=== PATIENT | female | born 1995 | race African-American/Black ===

== ENCOUNTER 2017-08-22 22:29 | Emergency (ER) | payer OTHER ==
[2017-08-22 22:56] LABS: #Eosinphils 0.1 thou/uL (0.0-0.7); #Lymphocytes 2.1 thou/uL (1.20-3.40); #Monocytes 0.3 thou/uL (0.11-0.59); #Neutrophils 2.5 thou/uL (1.40-6.50); %Basophils 0.4 % (0.0-1.0); %Eosinophils 1.1 % (0.0-10.0); %Lymphocytes 42.1 % (28.0-48.0); %Monocytes 6.7 % (0.0-4.0); %Neutrophils 49.7 % (31.0-61.0); Mean Corpuscular HGB CONC 31.8 g/dL (32.0-36.0); Mean Corpuscular Hemoglobin 24.3 pg (25.0-35.0); Mean Corpuscular Volume 76.7 fl (77.0-87.0); Mean Platelet Volume 7.7 fL (7.4-10.4); Platelet Count 282 thou/uL (130-400); RBC Distribution Width 14.4 % (11.5-14.5); Red Blood Cell (RBC) Count 4.51 mill/uL (4.00-5.20); White Blood Cell (WBC) Count 5.1 thou/uL (4.8-10.8)
[2017-08-22 23:20] LABS: ALT (SGPT) 9 U/L (8-55); AST (SGOT) 15 U/L (5-30); Albumin 3.9 g/dL (3.5-5.0); Alkaline Phosphatase 61 U/L (40-150); Anion Gap 10 mmol/L (10-20); BUN (Urea Nitrogen) 9 mg/dL (8.4-21.0); Bilirubin, Total 0.5 mg/dL (0.2-1.2); Calc. Creatinine Clearance 0 mL/min (70-130); Carbon Dioxide 24 mmol/L (22-29); Chloride 103 mmol/L (98-107); Estimated GFR-MDRD Greater than 90; Glucose 107 mg/dL (70-105); Protein, Total 6.9 g/dL (6.0-8.3); Sodium 134 mmol/L (136-145)
--- NOTE | 2017-08-22 23:55 | ULT ---
PELVIS ULTRASOUND: HISTORY: Right lower quadrant pain x3 days. TECHNIQUE: Real-time imaging of the pelvis was obtained transabdominally as well as with an endovaginal probe. FINDINGS: This shows a uterus measuring 9.9 cm in length. There is an intrauterine gestational sac, yolk sac, and a somewhat difficult to visualize pole. The [id number] length measurements are 4 mm, co rresponding to a gestational age of 6 weeks 1 day. Gestational sac measurements are 1.7 cm, correspo nding to 6 weeks 4 days. There is a subchorionic bleed present with a crescentic shaped area of blee d around approximately half of the gestational sac. It measures approximately 7 mm in thickness. There is a 3 cm right ovarian cyst present. The left ovary is unremarkable. DOPPLER EVALUATION WITH SPECTRAL ANALYSIS: Normal flow is shown to both adnexae. Trace free fluid is seen adjacent to the right ovary. IMPRESSION: 1. A 3 cm right ovarian cyst with some fluid near the right ovary. 2. A single viable intrauterine with measurements that would correspond to a gestational a ge of 6 weeks 3 days. Estimated date of delivery 04/14/2018. There is evidence of a subchorionic bl eed. POS: [facility]
[2017-08-23 00:03] LABS: Bilirubin Negative (Negative); Blood, Urine Negative (Negative); Clarity CLEAR (Clear); Glucose, Urine (Dipstick) Negative (Negative); Leukocyte Negative (Negative); Nitrite Negative (Negative); Protein, Urine (Dipstick) Negative (Neg-Trace); Specific Gravity, Urine 1.004 (1.002-1.036); Urobilinogen 0.2 mg/dL (0.2-1.0)
== END 2017-08-23 00:15 | disposition home or self-care (01) ==
LOC: ERS 22:29
DX: O20.0 Threatened abortion (principal); O34.81 Maternal care for other abnormalities of pelvic organs, first trimester; N83.201 Unspecified ovarian cyst, right side; Z3A.01 Less than 8 weeks gestation of pregnancy
CPT/HCPCS: 36415; 76856; 80053; 81003; 85025; 86900; 86901; 87086

== ENCOUNTER 2017-12-15 22:36 | Day surgery (SDC) | payer OTHER ==
[2017-12-15 23:09] VITALS: BP 124/60; TEMP 99.1; BMI 19.8
--- NOTE | 2017-12-15 23:36 | PDOC.EVN ---
Event Note - Event Note Event Note: Faculty Note: Full H&P is handwritten and placed in chart by RN. Patient is at 22 weeks 6 days with nonspecific left anterior abdominal discomfort. Afebrile. I have ordered a cath UA to r/o UTI. Likely round ligament spasm. Please see full H&P handwritten note
[2017-12-15 23:51] LABS: Bilirubin Negative (Negative); Blood, Urine Negative (Negative); Clarity CLEAR (Clear); Glucose, Urine (Dipstick) Negative (Negative); Leukocyte Negative (Negative); Nitrite Negative (Negative); Protein, Urine (Dipstick) Negative (Neg-Trace); Specific Gravity, Urine 1.009 (1.002-1.036); Urobilinogen 0.2 mg/dL (0.2-1.0); pH, Urine 6.5 (5.0-9.0)
--- NOTE | 2017-12-16 00:09 | PDOC.EVN ---
Event Note - Event Note Event Note: UA clean...DX= round ligament pain. OK for outpatient care.
== END 2017-12-16 00:30 | disposition home or self-care (01) ==
LOC: L&D/OP 22:36
PROVIDERS: ATTEND Obstetrics & Gynecology
DX: O99.89 Other specified diseases and conditions complicating pregnancy, childbirth and the puerperium (principal); R10.9 Unspecified abdominal pain; Z3A.22 22 weeks gestation of pregnancy
CPT/HCPCS: 81003; 99282; A4353

== ENCOUNTER 2018-02-22 21:31 | Day surgery (SDC) | payer OTHER ==
[2018-02-22 21:22] LABS: #Basophils 0.1 thou/uL (0.0-0.2); #Eosinphils 0.2 thou/uL (0.0-0.7); #Lymphocytes 1.7 thou/uL (1.20-3.40); #Monocytes 0.5 thou/uL (0.11-0.59); #Neutrophils 3.9 thou/uL (1.40-6.50); %Basophils 0.9 % (0.0-1.0); %Eosinophils 2.5 % (0.0-10.0); %Lymphocytes 26.9 % (28.0-48.0); %Monocytes 7.4 % (0.0-4.0); %Neutrophils 62.2 % (31.0-61.0); Hemoglobin 10.3 g/dL (12.0-16.0); Mean Corpuscular HGB CONC 31.2 g/dL (32.0-36.0); Mean Corpuscular Hemoglobin 23.5 pg (25.0-35.0); Mean Corpuscular Volume 75.4 fL (78.0-98.0); Platelet Count 316 thou/uL (130-400); RBC Distribution Width 13.6 % (11.5-14.5); Red Blood Cell (RBC) Count 4.39 mill/uL (4.00-5.20); White Blood Cell (WBC) Count 6.2 thou/uL (4.8-10.8)
[2018-02-22 21:45] LABS: ALT (SGPT) Less than 7 U/L (8-55); AST (SGOT) 16 U/L (5-34); Albumin 3.5 g/dL (3.5-5.0); Alkaline Phosphatase 73 U/L (40-150); Anion Gap 11 mmol/L (10-20); BUN (Urea Nitrogen) 6 mg/dL (7.0-18.7); Bilirubin, Total 0.6 mg/dL (0.2-1.2); Calc. Creatinine Clearance 0 mL/min (70-130); Calcium 8.7 mg/dL (7.8-10.44); Carbon Dioxide 23 mmol/L (22-29); Chloride 105 mmol/L (98-107); Estimated GFR-MDRD Greater than 90; Globulin 3.5 g/dL (2.4-3.5); Glucose 76 mg/dL (70-105); Potassium 3.5 mmol/L (3.5-5.1); Sodium 135 mmol/L (136-145)
[2018-02-22 22:05] VITALS: BMI 22.1
--- NOTE | 2018-02-23 07:37 | PRG ---
DATE OF SERVICE: 02/22/2018 OB ER ENCOUNTER PRIMARY TECHNICAL SALES REPRESENTATIVE: Link Dash M.D. CHIEF COMPLAINT: Abdominal pains and increased discharge. HISTORY OF PRESENT ILLNESS: The patient is a 22-year-old G2, P1 female with an intrauterine pregnanc y at 33 weeks and a day, who presents to Labor and Delivery after experiencing 3 contractions through out the day. She reports each of them lasted about 2 minutes. The patient denies any leakage of flu id or vaginal bleeding or urinary urgency. She denies any fever, fall, headache, chest pain, shortne ss of breath, nausea or vomiting. The patient does report constipation. Denies diarrhea. Denies an y new rashes. Denies hip problems, knee problems, muscle weakness. She does report increased discha rge over the last couple of days. PAST MEDICAL HISTORY: Negative. PAST SURGICAL HISTORY: Negative. SOCIAL HISTORY: Denies drug, alcohol or tobacco use. ALLERGIES: No known drug allergies. MEDICATIONS: vitamins and iron. OB HISTORY: She has had a history of 1 term delivery. OB LABS: One-hour Glucola is 90. Sickle cell is negative, HIV first trimester is nonreactive, RPR f irst trimester is nonreactive, hepatitis B surface antigen first trimester is nonreactive. She is ru howard immune. Blood type is O positive. Antibody screen is negative. REVIEW OF SYSTEMS: Per HPI. PHYSICAL EXAMINATION: VITAL SIGNS: Blood pressure 106/60, heart rate of 83, respiratory rate of 18, temperature 98.6. GENERAL: She appears to be in no acute distress. She is alert and oriented, cooperative and pleasan t to interact with. HEENT: Head is normocephalic, atraumatic. LUNGS: Clear to auscultation bilaterally. HEART: Regular rate and rhythm. ABDOMEN: Gravid, soft, nontender to palpation. EXTREMITIES: Nontender, nonedematous. PELVIC: Cervix is closed and thick. heart tracing for abdominal pain shows a baseline in the 130s with moderate long-term variabili ty, positive 15 x 15 accelerations, no decelerations. She has some irritability on the monitor with infrequent contractions, not felt by the patient. DESIGN TECHNOLOGY PROFESSOR-3 was collected and is still pending at the enrique e of dictation. ASSESSMENT AND PLAN: The patient is a 22-year-old female with an intrauterine at 33 weeks who has experienced some Stefano Rodriguez today. Reassurance has been given to the patient as she has n o evidence of labor. There is the DESIGN TECHNOLOGY PROFESSOR-3 pending to evaluate for bacterial vaginosis or Trichomonas or yeast that may be contributing to the increased discharge. The patient has a closed cervix and a re assuring heart tracing. She has been given labor precautions and discharged home with instructions to call back in the morning as the DESIGN TECHNOLOGY PROFESSOR-3 would not be run until the next morning. The dimitris sevilla does have an appointment with her primary OB the following day.
== END 2018-02-22 23:40 | disposition home or self-care (01) ==
LOC: L&D/OP 21:31 → EDSTATUS 21:33 → L&D/OP 23:40
PROVIDERS: ATTEND Obstetrics & Gynecology
DX: O47.03 False labor before 37 completed weeks of gestation, third trimester (principal); O99.89 Other specified diseases and conditions complicating pregnancy, childbirth and the puerperium; R10.9 Unspecified abdominal pain; N89.8 Other specified noninflammatory disorders of vagina; Z3A.33 33 weeks gestation of pregnancy; Z79.899 Other long term (current) drug therapy
CPT/HCPCS: 36415; 80053; 85025; 87480; 87510; 87660; 99283

== ENCOUNTER 2018-03-10 22:46 | Day surgery (SDC) | payer OTHER ==
[2018-03-10 23:19] VITALS: BP 114/61; TEMP 98.4; BMI 22.5
--- NOTE | 2018-03-10 23:58 | PDOC.EVN ---
Event Note - Event Note Event Note: Patient's H&P dictated. Patient declined offered stadol. OK for DC after 30 minutes obs. NST reactive
--- NOTE | 2018-03-11 00:18 | HP ---
DATE OF ADMISSION: 03/10/2018 TIME OF EVALUATION: 2339 until 235. LOCATION: Labor and Delivery Triage. The patient is in LDR 5. This is a patient of Dr. Dash. REASON FOR EVALUATION: Probable contractions at 35 weeks. HISTORY OF PRESENT ILLNESS: This is a 22-year-old G2, P1 at 35 weeks and 2 days wit h a history of at 36 weeks with her last delivery here for possible contractions. She is not sure if she lost her "mucous plug." No leakage of fluid and no vaginal bleeding. She has goo d movements reported. PAST MEDICAL HISTORY: Negative. ALLERGIES: None. PAST SURGICAL HISTORY: None. SOCIAL HISTORY: Negative for alcohol, tobacco and drug use. OB HISTORY: Significant for vaginal delivery x1. PHYSICAL EXAMINATION: GENERAL: She is afebrile and normotensive. Clinically, she is in no acute distress. ABDOMEN: Uterus soft and nontender and size consistent with dates. Uterus is gravid with an estimat ed weight of approximately 5 pounds. On cervical examination by me, cervix is 1 cm dilated, 25% effaced, -2 station, cephalic presentation . Bag of water intact. Cervix is posterior. There is no evidence of vaginal bleeding or leakage of fluid. On monitor, heart tones are in the 130s-140s, moderate reactivity and accelerations. Tocodynamometer shows uterine irritability, but no distinct contraction pattern. ASSESSMENT: A 35 weeks and 2 days, 2, para 1 with irregular contractions with threatened pre term labor, no evidence of active labor. Cervical exam is only 1 cm dilated and there is no distinct contraction pattern. PLAN: 1. Pain meds p.r.n. 2. Blood pressure is okay. 3. Reactive heart tones. 4. We will observe for about 30 minutes to keep her on the strip. 5. No active contraction pattern. 6. Threatened labor, discussed with patient. 7. The patient is stable for possible outpatient management.
== END 2018-03-11 00:55 | disposition home or self-care (01) ==
LOC: L&D/OP 22:46
PROVIDERS: ATTEND Obstetrics & Gynecology
DX: O47.03 False labor before 37 completed weeks of gestation, third trimester (principal); Z3A.35 35 weeks gestation of pregnancy; Z87.51 Personal history of pre-term labor; Z79.899 Other long term (current) drug therapy
CPT/HCPCS: 99282

== ENCOUNTER 2018-04-01 13:42 | Day surgery (SDC) | payer OTHER ==
[2018-04-01 14:24] VITALS: BMI 22.3
--- NOTE | 2018-04-03 08:07 | SS ---
DATE OF ADMISSION: 04/01/2018 DATE OF DISCHARGE: 04/01/2018 LABOR AND DELIVERY TRIAGE NOTE REGULAR PHYSICIAN: Iliana Dash MD EVALUATING PHYSICIAN: Efe Silva MD HISTORY OF PRESENT ILLNESS: Ms. Mahmood is a 22-year-old black, G2, P0-1-0-1 with an estimated date of confinement of 04/12/2018, who presents to triage this afternoon complaining of irregular contractions at home. She states that she had 3 contractions 5 minutes apart and came to the hospital for evaluation. She denies ruptured membranes or vaginal bleeding. Her care has been with Dr. Dash and was reportedly complicated by some 1st trimester bleeding and a possible subchorionic hemorrhage. Her exam last week showed the cervix to be 3 cm per her report. PAST OBSTETRICAL HISTORY: Includes one vaginal delivery at 36 weeks. PAST MEDICAL HISTORY: None. PAST SURGICAL HISTORY: None. CURRENT MEDICATIONS: 1. vitamins. 2. Iron. ALLERGIES: NONE. SOCIAL HISTORY: Denies tobacco or alcohol use. She denies illicit drug use. FAMILY HISTORY: Unremarkable. REVIEW OF SYSTEMS: Denies nausea, vomiting, fever, chills, ruptured membranes, or vaginal bleeding. PHYSICAL EXAMINATION: VITAL SIGNS: Stable and she is afebrile in Triage. ABDOMEN: Soft, nontender, and gravid. PELVIC: Examination by the Labor nurse shows the cervix to be 3 cm dilated, thick, and posterior. The vertex is ballotable. heart rate tracing is stable. There are no decelerations. Good vvyq-tt-qsod variability is seen. Irritability is seen with occasional contractions. ASSESSMENT AND PLAN: 1. A 38-week intrauterine . 2. No evidence of active labor at this time. The patient will be discharged home with labor precautions. These were reviewed with her in detail. She has an appointment with Dr. Dash on Tuesday, and he was notified of this visit. Job ID: [id number]
== END 2018-04-01 15:09 | disposition home health service (06) ==
LOC: L&D/OP 13:42
PROVIDERS: ATTEND Obstetrics & Gynecology
DX: O47.1 False labor at or after 37 completed weeks of gestation (principal); Z3A.38 38 weeks gestation of pregnancy

== ENCOUNTER 2018-04-01 21:11 | Inpatient (IN) | payer OTHER ==
[~2018-04-01 21:11] MED LIST: Bupivacaine HCl 0.5%/Epinephrine 1:200,000/PF 30 ml Vial ONE
[2018-04-01 21:43] VITALS: BMI 22.3
--- NOTE | 2018-04-01 22:13 | PDOC.FPROB ---
FMR OB H&P: HPI - History of Present Illness Chief Complaint: contractions Indentification: 22 y/o @ 38.3 WGA History of Present Illness: Patient reports contractions that started around 10 this morning, but then slowed down. She was evaluated here on L&D at that time and was found to be 3.5/ 40/-4. She states that around 7pm the contractions picked back up and were every 3-4 minutes. She denies any LOF, vaginal bleeding, vaginal d/c. She endorses good movement. She denies H/A, vision changes, RUQ pain, swelling. Primary Care Physician: Dr. Dash FMR OB H&P: Current - Care : 2 Para: 0101 Gestational age: 38w3d - OB Labs Blood type: O RH: positive Antibody Screen: negative HIV: negative RPR: negative HepBsAg: negative Rubella: immune 1 hour gtt: 90 GBS: unknown Additional labs: Sickle cell negative FMR OB H&P: History - Past Medical History PMH: None - OB History OB History: labor and delivery with vacuum assisted vaginal delivery at 36 weeks. 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: Denies h/o STI's or abnormal pap smears - Surgical History Sx History: None - Social History Social History: Denies tobacco, EtOH, or drug use - Family History Family History: None FMR OB H&P: Medications - Current Home Medications: Medication Instructions Recorded Confirmed Type Vit,Calc76/Iron/Folic 1 tablet PO DAILY 10/06/15 04/01/18 History [Prenatabs Rx Tablet] Ferrous Sulfate [Iron] 325 mg PO DAILY 04/01/18 04/01/18 History Allergies/Adverse Reactions: Allergies Allergy/AdvReac Type Severity Reaction Status Date / Time No Known Allergies Allergy Verified 04/01/18 14:15 FMR OB H&P: ROS - Review of Systems General: denies: fever/chills, weight/appetite/sleep changes Eyes: denies: eye pain, vision changes ENT: denies: nasal congestion, rhinorrhea, sore throat Cardiovascular: denies: chest pain, edema Respiratory: denies: cough, shortness of breath Gastrointestinal: denies: abdominal pain, nausea, vomiting Genitourinary (Female): denies: incontinence, dysuria, vaginal discharge, vaginal bleeding Musculoskeletal: denies: pain, stiffness Neurologic: denies: syncope, seizures Integumentary: denies: itching, rash Hematologic/Lymphatic: denies: prolonged or excessive bleeding, enlarged lymph nodes Psychological: denies: depression, anxiety FMR OB H&P: Vital Signs - Heart Tones Baseline: 140 Variability: moderate Acceleration: present Deceleration: absent Category: category 1 Br[place] contractions every: 3-4 minutes FMR OB H&P: Physical Exam - Physical Exam General: NAD, awake, alert and oriented HEENT: normocephalic and atraumatic, MMM, conjunctiva clear Heart: RRR, normal S1/S2, pulses present Deviation from normal: 2/6 systolic murmur, loudest at L sternal border General: CTAB, no respiratory distress, good air movement, no wheezing Abdomen: soft, non-tender, bowel sound present Musculoskeletal: normal gait and station, pulses present Neurological: cranial nerves II through XII intact, no focal deficit Skin: no rash, capillary refill <2 seconds Psychiatric: intact recent and remote memory, good judgement and insight - Pelvic Exam SVE: /-2/posterior FMR OB H&P: A/P - Problem List (1) Term Current Visit: Yes Status: Acute Code(s): Z34.80 - ENCOUNTER FOR SUPRVSN OF NORMAL , UNSP TRIMESTER Assessment and Plan: Cervix has made some change from prior check earlier today. -Will monitor for 2 hours and then recheck cervix. If patient has made further cervical change will discuss case with Dr. Dash and likely admit patient. -Will orally hydrate Discussion: Date/Time: 04/01/182210 This H&P was discussed with Dr. Silva who agrees with the above documentation and plan. Signature: Adilene Suarez MD, PGY-2 Attending Addendum - Attending Addendum Date/Time: 04/02/18 0034 I personally evaluated the patient and discussed the management with Dr. Suarez. I agree with the History, Examination, Assessment and Plan documented above.
[2018-04-01] MEDS ORDERED: NS / Oxytocin 40 units/1000ml 1,000 ML IV PRN (23:41)
[2018-04-01] MEDS ORDERED: Lidocaine 1% (PF) 30 ML VIAL SC PRN (23:41)
[2018-04-01] MEDS ORDERED: Ibuprofen 800 MG TAB PO PRN (23:41)
[2018-04-01] MEDS ORDERED: Ondansetron PF 4 MG/2 ML Vial IVP PRN (23:41)
[2018-04-01] MEDS ORDERED: Promethazine HCl 25 MG/ML VIAL IM PRN (23:41)
[2018-04-01] MEDS ORDERED: Fentanyl 4 mcg/Bup 0.1% Cadd 100 ML ONE (23:48)
--- NOTE | 2018-04-01 23:48 | PDOC.EVN ---
Addendum entered and electronically signed by Adilene Suarez MD 04/02/18 00:01: Per Dr. Dash the patient is GBS negative. She does not require any antibiotics at this time. Original Note: Event Note - Event Note Event Note: Rechecked patient after two hours. SVE @ 2340 was /-2 Cat 1 FHT [place]: q4-5 minutes, having couplets -Will admit to L&D -Epidural -continue to monitor -LR @ 125, will draw labs -GBS status unknown, will attempt to obtain record and will start penicillin ppx <Adilene Suarez - Last Filed: 04/01/18 23:44> Attending Addendum - Attending Addendum Date/Time: 04/02/18 0035 I personally evaluated the patient and discussed the management with Dr. Suarez. I agree with the History, Examination, Assessment and Plan documented above with any addition or exceptions noted below. Communicated with Dr. Dash, made him aware of her admit. He states her GBS status is negative. <Efe Silva - Last Filed: 04/02/18 00:36>
[2018-04-01] MEDS ORDERED: Penicillin G Potassium 5 MILL.UNITS in Sodium Chloride 0.9% 100 ML IVPB SCH (23:59)
[2018-04-02] MEDS: Lactated Ringer's 1,000 ML IV SCH ×2 (00:05→09:01)
[2018-04-02 00:19] LABS: Hemoglobin 10.8 g/dL (12.0-16.0); Mean Corpuscular HGB CONC 30.3 g/dL (32.0-36.0); Mean Corpuscular Hemoglobin 21.5 pg (25.0-35.0); Mean Corpuscular Volume 70.7 fL (78.0-98.0); Mean Platelet Volume 8.3 fL (7.4-10.4); Platelet Count 302 thou/uL (130-400); RBC Distribution Width 16.2 % (11.5-14.5); Red Blood Cell (RBC) Count 5.02 mill/uL (4.00-5.20); White Blood Cell (WBC) Count 7.3 thou/uL (4.8-10.8)
[2018-04-02] MEDS ORDERED: Ondansetron PF 4 MG/2 ML Vial IVP PRN ×2 (00:27→06:27)
[2018-04-02] MEDS ORDERED: Promethazine HCl 25 MG/ML VIAL IM PRN (00:27)
[2018-04-02] MEDS ORDERED: Acetaminophen 325 MG TAB PO PRN (00:27)
[2018-04-02] MEDS ORDERED: diphenhydrAMINE 50 MG/ML VIAL IVP PRN (00:27)
[2018-04-02] MEDS ORDERED: ePHEDrine/0.9% NaCl/PF SYRINGE 50 mg/10 ml SLOW IVP PRN (00:27)
[2018-04-02] MEDS ORDERED: Lactated Ringer's 500 ML IV PRN (00:27)
[2018-04-02] MEDS ORDERED: Naloxone HCl 0.4 mg/ml Vial IVP PRN ×2 (00:27)
[2018-04-02] MEDS ORDERED: Eucerin (Mineral Oil/Petrolatum,White) 30 gm Jar TOP PRN (00:27)
[2018-04-02] MEDS ORDERED: Fentanyl 4 mcg/Bupivacaine 0.1% Cassette 100 ML EPIDURAL SCH (00:30)
[2018-04-02] MEDS ORDERED: Communication Order-Pharmacy FS SCH (00:30)
[2018-04-02 01:11] LABS: HBSAg Index 0.19 S/CO (0-0.99); Hep B Surf Ag Non-Reactive S/CO (NonReactive); Syphilis Antibody Nonreactive (Nonreactive); Syphilis Antibody Index 0.04 S/CO (<1.00 Non-Reactive)
[2018-04-02] MEDS ORDERED: Penicillin G 2.5 MILL.units 2.5 MILL.UNITS in Premix Bag 1 BAG IVPB SCH (04:00)
[2018-04-02] MEDS ORDERED: Preparation H Ointment 28 GM TUBE PR PRN (06:27)
[2018-04-02] MEDS ORDERED: Acetaminophen/Codeine 30-300mg Tablet PO PRN ×2 (06:27)
[2018-04-02] MEDS ORDERED: Adacel (T-DAP) 0.5 ML SYRINGE IM ONE (06:27)
[2018-04-02] MEDS ORDERED: Lanolin Ointment 7 GM TUBE TOP PRN (06:27)
[2018-04-02] MEDS ORDERED: Zolpidem Tartrate 5 MG TAB PO PRN (06:27)
[2018-04-02] MEDS ORDERED: Bisacodyl 10 MG SUPP PR PRN (06:27)
[2018-04-02] MEDS ORDERED: Misoprostol 200 MCG TAB VAG PRN (06:27)
[2018-04-02] MEDS ORDERED: Benzocaine/Menthol 20-0.5% 60 ML CAN TOP PRN (06:27)
[2018-04-02] MEDS ORDERED: diphenhydrAMINE 25 MG CAP PO PRN (06:27)
[2018-04-02] MEDS ORDERED: Milk Of Magnesia 30 ML UDCUP PO PRN (06:27)
[2018-04-02] MEDS ORDERED: NS / Oxytocin 40 units/1000ml 1,000 ML IV SCH (06:30)
[2018-04-02] MEDS: Ferrous Sulfate 325 MG TAB PO SCH ×2 (09:01→14:08)
[2018-04-02] MEDS: Ibuprofen 800 MG TAB PO SCH ×2 (09:36→11:41)
[2018-04-02] MEDS: Docusate Calcium (SURFAK) 240 MG CAP PO SCH ×2 (09:36→20:14)
[2018-04-02] MEDS: Prenatal Vitamin 1 TAB PO SCH (09:36)
[2018-04-02] MEDS ORDERED: Ibuprofen 800 MG TAB PO SCH (17:00)
[2018-04-02] MEDS: Ibuprofen 800 MG TAB PO PRN (23:25)
[2018-04-03 06:45] LABS: Mean Corpuscular HGB CONC 31.1 g/dL (32.0-36.0); Mean Corpuscular Hemoglobin 22.5 pg (25.0-35.0); Mean Corpuscular Volume 72.2 fL (78.0-98.0); Mean Platelet Volume 8.6 fL (7.4-10.4); Platelet Count 242 thou/uL (130-400); RBC Distribution Width 16.2 % (11.5-14.5); Red Blood Cell (RBC) Count 4.01 mill/uL (4.00-5.20); White Blood Cell (WBC) Count 7.5 thou/uL (4.8-10.8)
[2018-04-03 07:48] VITALS: BP 120/68; TEMP 97.6
[2018-04-03] MEDS: Prenatal Vitamin 1 TAB PO SCH (11:14)
[2018-04-03] MEDS: Ferrous Sulfate 325 MG TAB PO SCH (11:14)
[2018-04-03] MEDS: Docusate Calcium (SURFAK) 240 MG CAP PO SCH (11:14)
[2018-04-03] MEDS: Ibuprofen 800 MG TAB PO PRN (14:49)
== END 2018-04-03 18:05 | disposition home or self-care (01) | DRG 807 ==
LOC: L&D/OP 21:11 → L&D 23:47 → 3SE 04-02 08:52
PROVIDERS: ADMIT Obstetrics & Gynecology; ATTEND Obstetrics & Gynecology
PROC: 10E0XZZ Delivery of Products of Conception, External Approach (ICD-10-PCS; principal; 2018-04-02)
PROC: 0HQ9XZZ Repair Perineum Skin, External Approach (ICD-10-PCS; 2018-04-02)
DX: O70.0 First degree perineal laceration during delivery (principal); Z37.0 Single live birth; Z3A.38 38 weeks gestation of pregnancy
CPT/HCPCS: 36415; 85027; 86780; 86850; 86900; 86901; 87340; 99282; J0670; J2405

== ENCOUNTER 2018-11-15 21:13 | Emergency (ER) | payer MEDICAID, OTHER ==
[2018-11-15] MEDS ORDERED: Ondansetron ODT 8 MG TAB ONE (21:51)
[2018-11-15 22:06] LABS: Bilirubin Negative (Negative); Blood, Urine Negative (Negative); Clarity Clear (Clear); Glucose, Urine (Dipstick) >=1000 mg/dL (Negative); Leukocyte 250 Leu/uL (Negative); Mucous/LPF 1+ LPF (<2+); Nitrite Negative (Negative); Protein, Urine (Dipstick) 20 mg/dL (Neg-Trace)
[2018-11-15] MEDS ORDERED: Acetaminophen 500 MG TAB ONE (22:10)
[2018-11-15 22:13] LABS: Bacteria/HPF 2+ HPF (None Seen)
== END 2018-11-15 22:30 | disposition home or self-care (01) ==
LOC: ERS 21:13
DX: O23.42 Unspecified infection of urinary tract in pregnancy, second trimester (principal); O20.9 Hemorrhage in early pregnancy, unspecified; Z3A.18 18 weeks gestation of pregnancy
CPT/HCPCS: 81003; 81015

== ENCOUNTER 2019-01-15 21:59 | Emergency (ER) | payer MEDICAID ==
[2019-01-15 22:18] LABS: Bacteria/HPF None Seen HPF (None Seen); Bilirubin Negative (Negative); Blood, Urine Negative (Negative); Clarity Clear (Clear); Glucose, Urine (Dipstick) 50 mg/dL (Negative); Leukocyte 250 Leu/uL (Negative); Nitrite Negative (Negative); Protein, Urine (Dipstick) Negative (Neg-Trace); RBC/HPF 0-3 HPF (0-3); Urobilinogen Normal mg/dL (Less than 2); WBC/HPF 0-3 HPF (0-3)
[2019-01-15 22:41] LABS: #Eosinphils 0.1 thou/uL (0.0-0.7); #Lymphocytes 2.1 thou/uL (1.20-3.40); #Monocytes 0.4 thou/uL (0.11-0.59); #Neutrophils 2.5 thou/uL (1.40-6.50); %Basophils 0.4 % (0.0-1.0); %Eosinophils 1.6 % (0.0-10.0); %Monocytes 7.9 % (0.0-10.0); %Neutrophils 49.1 % (42.0-75.0); Mean Corpuscular HGB CONC 33.3 g/dL (32.0-36.0); Mean Corpuscular Hemoglobin 25.4 pg (27.0-31.0); Mean Corpuscular Volume 76.4 fL (78.0-98.0); Mean Platelet Volume 7.8 fL (7.4-10.4); Platelet Count 277 thou/uL (130-400); RBC Distribution Width 12.9 % (11.5-14.5); Red Blood Cell (RBC) Count 4.32 mill/uL (4.20-5.40); White Blood Cell (WBC) Count 5.2 thou/uL (4.8-10.8)
[2019-01-15 22:54] LABS: ALT (SGPT) 7 U/L (8-55); AST (SGOT) 12 U/L (5-34); Albumin 3.4 g/dL (3.5-5.0); Alkaline Phosphatase 56 U/L (40-110); Anion Gap 11 mmol/L (10-20); BUN (Urea Nitrogen) 8 mg/dL (7.0-18.7); Bilirubin, Total 0.2 mg/dL (0.2-1.2); Calc. Creatinine Clearance 0 mL/min (70-130); Carbon Dioxide 22 mmol/L (22-29); Chloride 104 mmol/L (98-107); Estimated GFR-MDRD Greater than 90; Globulin 3.2 g/dL (2.4-3.5); Glucose 90 mg/dL (70-105); Potassium 3.5 mmol/L (3.5-5.1); Protein, Total 6.6 g/dL (6.0-8.3); Sodium 133 mmol/L (136-145)
== END 2019-01-15 23:05 | disposition home or self-care (01) ==
LOC: ERS 21:59
DX: O99.89 Other specified diseases and conditions complicating pregnancy, childbirth and the puerperium (principal); R10.9 Unspecified abdominal pain; Z3A.13 13 weeks gestation of pregnancy; Z79.899 Other long term (current) drug therapy
CPT/HCPCS: 36415; 80053; 81003; 81015; 84702; 85025; 87077; 87086; 99284

== ENCOUNTER 2019-04-19 22:25 | Day surgery (SDC) | payer OTHER ==
[2019-04-19 23:09] VITALS: BMI 22.6
[2019-04-19] MEDS ORDERED: hydrALAZINE 20 MG/ML VIAL SLOW IVP PRN (23:18)
--- NOTE | 2019-04-19 23:45 | HP ---
This is a patient of Dr. Juli Thompson/Dr. Dash. TIME OF EVALUATION: Roughly 2310 hours to 2325 hours, time now is 2326 hours. LOCATION: Triage in antepartum bed 2. REASON FOR EVALUATION/CHIEF COMPLAINT: Pelvic pressure at 30 weeks with recent intercourse within 24 hours. HISTORY OF PRESENT ILLNESS: This is a 23-year-old , G3, P2, with an EDC of June 26, putting her at 30 weeks and 1 day. She states lower pelvic cramping, but no real contractions. She denies leakage of fluid or vaginal bleeding. She states that she has had recent intercourse and has cramps on and off. She denies recent trauma. REVIEW OF SYSTEMS: Complete review of systems was checked and is otherwise negative unless specified in the HPI. PAST MEDICAL HISTORY: Negative. SURGICAL HISTORY: Negative. ALLERGIES: NONE. OB HISTORY: She had a vaginal delivery with her first child at 36 weeks. Her second delivery was at 37 weeks and 6 days. MEDICATIONS: None (no progesterone use). PHYSICAL EXAMINATION: VITAL SIGNS: Her blood pressure is 108/59, pulse is 82, and she is afebrile. GENERAL: She is in no acute distress and resting comfortably. ABDOMEN: Soft and nontender. CERVICAL: Deferred as we are awaiting a cervical length by ultrasound. Interventions ordered. I have ordered a transvaginal ultrasound for cervical length. strip, I reviewed the heart monitor and heart tones are in the 130s to 140s with normal baseline and moderate variability. They are accelerations and no pathological decelerations. The heart rate tracing is reassuring. ASSESSMENT: This is a 23-year-old multigravida at 30 weeks and 1 day with likely discomforts of /round ligament pain, and cramping, most likely from recent intercourse. I do not suspect labor at this time. However, to be conservative, I have ordered a transvaginal ultrasound for cervical length. I cannot obtain a fibronectin as she has had recent intercourse within 24 hours. PLAN: 1. Reassurance given. 2. OB history reviewed with her. 3. Etiology of the cramps as round ligament pain versus postcoital uterine contractions reviewed. Job ID: [id number]
--- NOTE | 2019-04-19 23:46 | PDOC.EVN ---
Event Note - Event Note Event Note: Present for TVL US: average legnth as 2.8cm. No funneling noted or beaking...ok for DC home. DX: Round ligament pain
--- NOTE | 2019-04-19 23:57 | ULT ---
EXAM: US Pelvic Transvag PROVIDED CLINICAL HISTORY: Pelvic pain COMPARISON: None FINDINGS: Limited sonographic interrogation was performed of the uterine cervix. It measures approximately 2.8 cm in length and appears closed. IMPRESSION: As above.
== END 2019-04-20 00:05 | disposition home or self-care (01) ==
LOC: L&D/OP 22:25
PROVIDERS: ATTEND Obstetrics & Gynecology
DX: O99.89 Other specified diseases and conditions complicating pregnancy, childbirth and the puerperium (principal); R10.2 Pelvic and perineal pain; Z3A.30 30 weeks gestation of pregnancy
CPT/HCPCS: 76856; 99282

== ENCOUNTER 2019-06-01 23:42 | Day surgery (SDC) | payer OTHER ==
[2019-06-02 00:08] VITALS: BP 114/64; TEMP 98.7; BMI 22.0
[2019-06-02] MEDS ORDERED: hydrALAZINE 20 MG/ML VIAL SLOW IVP PRN ×2 (00:15→00:34)
[2019-06-02] MEDS ORDERED: Ibuprofen 800 MG TAB PO PRN (00:34)
[2019-06-02] MEDS ORDERED: Ondansetron PF 4 MG/2 ML Vial IVP PRN (00:34)
[2019-06-02] MEDS ORDERED: NS / Oxytocin 40 units/1000ml 1,000 ML IV PRN (00:34)
[2019-06-02] MEDS ORDERED: Promethazine HCl 25 MG/ML VIAL IM PRN (00:34)
[2019-06-02] MEDS ORDERED: Lidocaine 1% (PF) 30 ML VIAL SC PRN (00:34)
--- NOTE | 2019-06-02 00:40 | PDOC.FPROB ---
FMR OB H&P: HPI - History of Present Illness Chief Complaint: abdominal cramping Indentification: 23 y/o @ 36.3 WGA History of Present Illness: Patient presents for abdominal cramping that has been ongoing for about a week, but today it has been getting worse with associated vaginal pressure. She reports the cramping is mostly in her lower abdomen and she is not sure if it is contractions. She reports increase in vaginal d/c lately that she thinks is her mucous plug. She denies vaginal bleeding or LOF. Endorses movement. Primary Care Physician: Dr. 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: Denies any h/o STI's or abnormal paps - Surgical History Sx History: Denies - Social History Social History: Denies EtOH, tobacco, or drug use - Family History Family History: Denies FMR OB H&P: Medications - Current Home Medications: Medication Instructions Recorded Confirmed Type No Known 06/02/19 06/02/19 History Allergies/Adverse Reactions: Allergies Allergy/AdvReac Type Severity Reaction Status Date / Time No Known Allergies Allergy Verified 06/02/19 00:04 FMR OB H&P: ROS - Review of Systems General: denies: fever/chills, weight/appetite/sleep changes Eyes: denies: vision changes, double vision ENT: denies: nasal congestion, sore throat Cardiovascular: denies: chest pain, edema Respiratory: denies: cough, shortness of breath Gastrointestinal: reports: abdominal pain. denies: nausea, vomiting Genitourinary (Female): reports: vaginal discharge, vaginal pressure. denies: dysuria, vaginal bleeding Musculoskeletal: denies: pain, swelling Neurologic: denies: numbness, weakness Integumentary: denies: itching, rash Hematologic/Lymphatic: denies: prolonged or excessive bleeding, enlarged lymph nodes FMR OB H&P: Vital Signs - Maternal Vital signs: Vital Signs - First Documented Temp Pulse Resp BP 98.7 F 78 18 114/64 06/02/19 00:02 06/02/19 00:02 06/02/19 00:02 06/02/19 00:02 - Heart Tones Baseline: 130 Variability: moderate Acceleration: present Deceleration: absent Category: category 1 [place] contractions every: 5-6 min FMR OB H&P: Physical Exam - Physical Exam General: NAD, awake, alert and oriented HEENT: normocephalic and atraumatic, MMM, conjunctiva clear, grossly normal vision, grossly normal hearing Neck: supple, no LAD Heart: pulses present, no edema General: no respiratory distress Abdomen: soft (with palpable contractions), gravid, non-tender Musculoskeletal: pulses present, FROM in all four extremities Neurological: no tremor, no focal deficit Skin: good tugor, capillary refill <2 seconds Psychiatric: intact recent and remote memory, good judgement and insight - Pelvic Exam SVE: /-2 FMR OB H&P: A/P - Problem List (1) labor in third trimester Current Visit: Yes Status: Acute Code(s): O60.03 - LABOR WITHOUT DELIVERY, THIRD TRIMESTER Qualifiers: Fetus number: single or unspecified fetus Assessment and Plan: Patient presents in labor with cervical dilation of 4 and ctx q5-6 min -Will admit to L&D -Expectantly manage -Penicillin for GBS ppx as pt GBS unknown and -Monitor FHT -LR @ 125 Disposition: Admit to L&D for expectant management Discussion: Date/Time: 06/02/1936 This H&P was discussed with Dr. Silva who agrees with the above documentation and plan. Signature: Adilene Suarez MD, PGY-3 Addendum - Attending - Attending Attestation Date/Time: 06/02/19 7122 I personally evaluated the patient and discussed the management with Dr. Suarez. Dr. Dash notified of admit. I agree with the History, Examination, Assessment and Plan documented above.
[2019-06-02] MEDS ORDERED: Lactated Ringer's 1,000 ML IV SCH (00:45)
[2019-06-02] MEDS ORDERED: Penicillin G Potassium 5 MILL.UNITS in Sodium Chloride 0.9% 100 ML IVPB SCH (00:45)
[2019-06-02 01:57] LABS: Hemoglobin 9.9 g/dL (12.0-16.0); Mean Corpuscular HGB CONC 32.4 g/dL (32.0-36.0); Mean Corpuscular Hemoglobin 23.5 pg (27.0-31.0); Mean Corpuscular Volume 72.4 fL (78.0-98.0); Mean Platelet Volume 8.6 fL (7.4-10.4); Platelet Count 291 thou/uL (130-400); RBC Distribution Width 14.8 % (11.5-14.5); Red Blood Cell (RBC) Count 4.23 mill/uL (4.20-5.40); White Blood Cell (WBC) Count 5.5 thou/uL (4.8-10.8)
[2019-06-02 02:33] LABS: HBSAg Index 0.25 S/CO (0-0.99); Hep B Surf Ag Non-Reactive S/CO (NonReactive)
[2019-06-02 04:45] LABS: Syphilis Antibody Nonreactive (Nonreactive); Syphilis Antibody Index 0.04 S/CO (<1.00 Non-Reactive)
[2019-06-02] MEDS ORDERED: Penicillin G 2.5 MILL.units 2.5 MILL.UNITS in Premix Bag 1 BAG IVPB SCH (05:00)
[2019-06-02] MEDS ORDERED: FLU VACC QS2019-20(6MOS UP)/PF 60 MCG/0.5 ML SYRINGE IM ONE (09:00)
== END 2019-06-02 14:11 | disposition home or self-care (01) ==
LOC: L&D/OP 23:42 → L&D 06-02 00:34 → UNDOADMIN 06-02 00:34 → UNDODISIN 06-02 13:30 → L&D/OP 06-02 14:11
PROVIDERS: ATTEND Obstetrics & Gynecology
DX: O47.03 False labor before 37 completed weeks of gestation, third trimester (principal); O99.820 Streptococcus B carrier state complicating pregnancy; Z3A.36 36 weeks gestation of pregnancy
CPT/HCPCS: 36415; 85027; 86780; 86850; 86900; 86901; 87340; 96360; 96361; 99285

== ENCOUNTER 2019-06-05 11:00 | Inpatient (IN) | payer OTHER ==
[2019-06-05 11:33] VITALS: BMI 22.6
[2019-06-05] MEDS ORDERED: Penicillin G Potassium 5 MILL.UNITS VIAL ONE (11:41)
[2019-06-05] MEDS ORDERED: Lidocaine 1% (PF) 30 ML VIAL SC PRN (11:55)
[2019-06-05] MEDS ORDERED: Acetaminophen/Codeine 30-300mg Tablet PO PRN ×4 (11:55→16:06)
[2019-06-05] MEDS ORDERED: Diphenoxylate HCl/Atropine Tablet PO PRN ×2 (11:55)
[2019-06-05] MEDS ORDERED: Ondansetron PF 4 MG/2 ML Vial IVP PRN ×3 (11:55→16:06)
[2019-06-05] MEDS ORDERED: Misoprostol 200 MCG TAB PR PRN (11:55)
[2019-06-05] MEDS ORDERED: Methylergonovine 0.2 MG/ML VIAL IM PRN (11:55)
[2019-06-05] MEDS ORDERED: Promethazine HCl 25 MG/ML VIAL IM PRN ×2 (11:55→13:46)
[2019-06-05] MEDS ORDERED: Ibuprofen 800 MG TAB PO PRN (11:55)
[2019-06-05] MEDS ORDERED: NS / Oxytocin 40 units/1000ml 1,000 ML IV PRN (11:55)
[2019-06-05] MEDS ORDERED: Docusate 100 MG CAP PO PRN (11:55)
[2019-06-05] MEDS ORDERED: Carboprost 250 MCG/ML AMP IM PRN (11:55)
[2019-06-05] MEDS ORDERED: hydrALAZINE 20 MG/ML VIAL SLOW IVP PRN ×2 (11:55→16:06)
[2019-06-05] MEDS ORDERED: Lactated Ringer's 1,000 ML IV SCH (12:00)
[2019-06-05] MEDS ORDERED: Penicillin G Potassium 5 MILL.UNITS in Sodium Chloride 0.9% 100 ML IVPB SCH (12:00)
[2019-06-05] MEDS ORDERED: Bupivacaine 0.25% HCL 30 ML VIAL ONE (12:23)
[2019-06-05] MEDS ORDERED: Fentanyl 4 mcg/Bup 0.1% Cadd 100 ML ONE (12:25)
[2019-06-05 12:33] LABS: Hemoglobin 9.7 g/dL (12.0-16.0); Mean Corpuscular HGB CONC 29.8 g/dL (32.0-36.0); Mean Corpuscular Hemoglobin 21.2 pg (27.0-31.0); Mean Corpuscular Volume 71.2 fL (78.0-98.0); Mean Platelet Volume 9.9 fL (7.4-10.4); Platelet Count 274 thou/uL (130-400); RBC Distribution Width 15.1 % (11.5-14.5); Red Blood Cell (RBC) Count 4.54 mill/uL (4.20-5.40); White Blood Cell (WBC) Count 6.5 thou/uL (4.8-10.8)
[2019-06-05 13:27] LABS: Syphilis Antibody Nonreactive (Nonreactive); Syphilis Antibody Index 0.04 S/CO (<1.00 Non-Reactive)
[2019-06-05 13:28] LABS: HBSAg Index 0.27 S/CO (0-0.99); Hep B Surf Ag Non-Reactive S/CO (NonReactive)
[2019-06-05] MEDS ORDERED: Acetaminophen 325 MG TAB PO PRN (13:46)
[2019-06-05] MEDS ORDERED: Lactated Ringer's 500 ML IV PRN (13:46)
[2019-06-05] MEDS ORDERED: EPHEDRINE 25 MG/5 ML SYRINGE SLOW IVP PRN (13:46)
[2019-06-05] MEDS ORDERED: Naloxone HCl 0.4 mg/ml Vial IVP PRN ×2 (13:46)
[2019-06-05] MEDS ORDERED: diphenhydrAMINE 50 MG/ML VIAL IVP PRN (13:46)
[2019-06-05] MEDS ORDERED: Fentanyl 4 mcg/Bupivacaine 0.1% Cassette 100 ML EPIDURAL SCH (14:00)
[2019-06-05] MEDS ORDERED: Communication Order-Pharmacy FS SCH (14:00)
[2019-06-05] MEDS ORDERED: Penicillin G 2.5 MILL.units 2.5 MILL.UNITS in Premix Bag 1 BAG IVPB SCH (16:00)
[2019-06-05] MEDS ORDERED: Zolpidem Tartrate 5 MG TAB PO PRN (16:06)
[2019-06-05] MEDS ORDERED: Benzocaine-Menthol 82.5 ML CAN TOP PRN (16:06)
[2019-06-05] MEDS ORDERED: Lanolin Ointment 7 GM TUBE TOP PRN (16:06)
[2019-06-05] MEDS ORDERED: Bisacodyl 10 MG SUPP PR PRN (16:06)
[2019-06-05] MEDS ORDERED: diphenhydrAMINE 25 MG CAP PO PRN (16:06)
[2019-06-05] MEDS ORDERED: Milk Of Magnesia 30 ML UDCUP PO PRN (16:06)
[2019-06-05] MEDS ORDERED: Preparation H Ointment 28 GM TUBE PR PRN (16:06)
[2019-06-05] MEDS ORDERED: Misoprostol 200 MCG TAB VAG PRN (16:06)
[2019-06-05] MEDS ORDERED: NS / Oxytocin 40 units/1000ml 1,000 ML IV SCH (16:15)
[2019-06-05] MEDS: Ferrous Sulfate 325 MG TAB PO SCH (21:08)
[2019-06-05] MEDS: Docusate Calcium (SURFAK) 240 MG CAP PO SCH (21:08)
[2019-06-05] MEDS: Ibuprofen 800 MG TAB PO SCH (21:08)
[2019-06-06] MEDS: Ibuprofen 800 MG TAB PO SCH ×3 (06:21→18:39)
[2019-06-06] MEDS ORDERED: Adacel (T-DAP) 0.5 ML SYRINGE IM ONE (09:00)
[2019-06-06] MEDS: Docusate Calcium (SURFAK) 240 MG CAP PO SCH ×2 (18:24→21:42)
[2019-06-06] MEDS: Prenatal Vitamin 1 TAB PO SCH (18:24)
[2019-06-06] MEDS: Ferrous Sulfate 325 MG TAB PO SCH ×2 (18:24→18:39)
[2019-06-07] MEDS: Ibuprofen 800 MG TAB PO SCH (06:05)
[2019-06-07 08:29] VITALS: BP 116/59; TEMP 98
[2019-06-07] MEDS: Prenatal Vitamin 1 TAB PO SCH (08:32)
[2019-06-07] MEDS: Ferrous Sulfate 325 MG TAB PO SCH (08:32)
[2019-06-07] MEDS: Docusate Calcium (SURFAK) 240 MG CAP PO SCH (08:33)
== END 2019-06-07 13:50 | disposition home or self-care (01) | DRG 807 ==
LOC: L&D 11:00 → 3SE 18:50
PROVIDERS: ADMIT Obstetrics & Gynecology; ATTEND Obstetrics & Gynecology
PROC: 10E0XZZ Delivery of Products of Conception, External Approach (ICD-10-PCS; principal; 2019-06-05)
DX: O60.14X0 Preterm labor third trimester with preterm delivery third trimester, not applicable or unspecified (principal); Z37.0 Single live birth; O99.824 Streptococcus B carrier state complicating childbirth; Z3A.36 36 weeks gestation of pregnancy
CPT/HCPCS: 36415; 85027; 86780; 86850; 86900; 86901; 87340; J2540; S0020

== ENCOUNTER 2020-12-20 21:37 | Emergency (ER) | payer OTHER ==
[2020-12-20 21:52] LABS: Bilirubin Negative (Negative); Blood, Urine Negative (Negative); Clarity Clear (Clear); Glucose, Urine (Dipstick) Normal (Negative); Ketone, Urine Negative (Negative); Leukocyte Negative Leu/uL (Negative); Nitrite Negative (Negative); Protein, Urine (Dipstick) Negative (Neg-Trace); Specific Gravity, Urine 1.029 (1.002-1.036); Urobilinogen Normal mg/dL (Less than 2); pH, Urine 5.5 (5.0-9.0)
[2020-12-20 21:54] LABS: Pregnancy Test - Urine (BHCG) Negative (Negative); Pregu Control Background? CLEAR/WHITE (CLR/WHITE); Pregu Control Bar Appear? YES (CONTROL BAR); Specific Gravity 1.029 (1.002-1.036)
[2020-12-20 22:16] LABS: #Eosinphils 0.1 thou/uL (0.0-0.7); #Lymphocytes 2.4 thou/uL (1.20-3.40); #Monocytes 0.4 thou/uL (0.11-0.59); #Neutrophils 2.4 thou/uL (1.40-6.50); %Basophils 0.4 % (0.0-1.0); %Eosinophils 2.4 % (0.0-10.0); %Lymphocytes 44.1 % (21.0-51.0); %Monocytes 7.3 % (0.0-10.0); %Neutrophils 45.7 % (42.0-75.0); Hemoglobin 10.4 g/dL (12.0-16.0); Mean Corpuscular HGB CONC 30.8 g/dL (32.0-36.0); Mean Corpuscular Hemoglobin 22.2 pg (27.0-31.0); Mean Corpuscular Volume 72.1 fL (78.0-98.0); Mean Platelet Volume 9.1 fL (7.4-10.4); Platelet Count 300 thou/uL (130-400); RBC Distribution Width 15.1 % (11.5-14.5); Red Blood Cell (RBC) Count 4.67 mill/uL (4.20-5.40); White Blood Cell (WBC) Count 5.3 thou/uL (4.8-10.8)
[2020-12-20 22:29] LABS: ALT (SGPT) 8 U/L (8-55); AST (SGOT) 14 U/L (5-34); Albumin 4.1 g/dL (3.5-5.0); Alkaline Phosphatase 68 U/L (40-110); Anion Gap 13 mmol/L (10-20); BUN (Urea Nitrogen) 12 mg/dL (7.0-18.7); Bilirubin, Total 0.6 mg/dL (0.2-1.2); Calc. Creatinine Clearance 0 mL/min (70-130); Calcium 9.3 mg/dL (7.8-10.44); Carbon Dioxide 23 mmol/L (22-29); Chloride 105 mmol/L (98-107); Globulin 3.4 g/dL (2.4-3.5); Glucose 86 mg/dL (70-105); Lipase 24 U/L (8-78); Potassium 3.6 mmol/L (3.5-5.1); Protein, Total 7.5 g/dL (6.0-8.3); Sodium 137 mmol/L (136-145)
== END 2020-12-20 23:00 | disposition home or self-care (01) ==
LOC: ERS 21:37
DX: R10.12 Left upper quadrant pain (principal); R10.13 Epigastric pain
CPT/HCPCS: 36415; 80053; 81003; 81025; 83690; 85025; 99284

== ENCOUNTER 2022-02-22 15:41 | Emergency (ER) | payer OTHER ==
[~2022-02-22 15:41] MED LIST changes: -Bupivacaine HCl 0.5%/Epinephrine 1:200,000/PF 30 ml Vial ONE; +Iopamidol-370 76% 500 ML 1 ML ONE
[2022-02-22 16:20] LABS: #Lymphocytes 1.4 thou/uL (1.20-3.40); #Monocytes 0.8 thou/uL (0.11-0.59); #Neutrophils 4.3 thou/uL (1.40-6.50); %Basophils 0.1 % (0.0-1.0); %Eosinophils 0.4 % (0.0-10.0); %Lymphocytes 21.5 % (21.0-51.0); %Monocytes 11.7 % (0.0-10.0); %Neutrophils 66.4 % (42.0-75.0); Hemoglobin 11.7 g/dL (12.0-16.0); Mean Corpuscular HGB CONC 30.1 g/dL (32.0-36.0); Mean Corpuscular Hemoglobin 24.9 pg (27.0-31.0); Mean Corpuscular Volume 82.9 fl (78.0-98.0); Mean Platelet Volume 8.5 fL (7.4-10.4); Platelet Count 227 thou/uL (130-400); RBC Distribution Width 13.1 % (11.5-14.5); Red Blood Cell (RBC) Count 4.71 mill/uL (4.20-5.40); White Blood Cell (WBC) Count 6.5 thou/uL (4.8-10.8)
[2022-02-22 16:27] LABS: BHCG - Serum Negative (NEGATIVE); Pregs Control Background? CLEAR/WHITE (CLR/WHITE); Pregs Control Bar Appear? YES (CONTROL BAR)
[2022-02-22 16:42] LABS: ALT (SGPT) 9 U/L (8-55); AST (SGOT) 15 U/L (5-34); Albumin 4.1 g/dL (3.5-5.0); Alkaline Phosphatase 87 U/L (40-110); Anion Gap 13 mmol/L (10-20); BUN (Urea Nitrogen) 9 mg/dL (7.0-18.7); Bilirubin, Total 0.8 mg/dL (0.2-1.2); Calc. Creatinine Clearance 0 mL/min (70-130); Calcium 9.4 mg/dL (7.8-10.44); Carbon Dioxide 24 mmol/L (22-29); Chloride 103 mmol/L (98-107); Estimated GFR 99; Globulin 3.4 g/dL (2.4-3.5); Glucose 83 mg/dL (70-105); Lipase 16 U/L (8-78); Potassium 3.8 mmol/L (3.5-5.1); Protein, Total 7.5 g/dL (6.0-8.3); Sodium 136 mmol/L (136-145)
[2022-02-22] MEDS ORDERED: Ondansetron PF 4 MG/2 ML Vial ONE (17:05)
[2022-02-22] MEDS ORDERED: Ketorolac Tromethamine 30 MG/ML VIAL ONE (17:05)
[2022-02-22 17:28] LABS: Bacteria/HPF 2+ HPF (None Seen); Bilirubin Negative (Negative); Blood, Urine 2+ (Negative); Clarity Clear (Clear); Glucose, Urine (Dipstick) Normal (Negative); Ketone, Urine Negative (Negative); Leukocyte 75 Leu/uL (Negative); Nitrite Negative (Negative); Protein, Urine (Dipstick) Negative (Neg-Trace); RBC/HPF 0-3 HPF (0-3); Specific Gravity, Urine 1.025 (1.002-1.036); Urobilinogen Normal mg/dL (Less than 2); pH, Urine 6.5 (5.0-9.0)
== END 2022-02-22 18:44 | disposition home or self-care (01) ==
LOC: ERS 15:41
DX: K57.32 Diverticulitis of large intestine without perforation or abscess without bleeding (principal)
CPT/HCPCS: 36415; 74177; 80053; 81003; 81015; 83690; 84703; 85025; 96374; 96375; J1885; J2405; Q9967